=== PATIENT | female | born 1980 | race Hispanic/Latino ===

== ENCOUNTER 2018-05-25 20:01 | Observation (INO) | payer OTHER ==
[~2018-05-25] VITALS: Ht 167.6 cm; Wt 136.1 kg
[2018-05-26 00:13] LABS: BASOPHILS % 0.2 % (0.0-1.0); EOSINOPHILS # (AUTO) 0.1 (0.0-0.4); EOSINOPHILS % 1.3 % (0.0-6.0); HEMATOCRIT 38.8 % (34.2-44.1); HEMOGLOBIN 12.8 g/dL (12.0-16.0); LYMPHOCYTES # (AUTO) 1.5 (1.0-3.2); LYMPHOCYTES % 31.5 % (18.0-39.1); MEAN CORPUSCULAR HEMOGLOBIN 30.4 pg (28-32); MEAN CORPUSCULAR VOLUME 92.2 fL (81-99); MONOCYTES # (AUTO) 0.6 (0.2-0.8); MONOCYTES % 12.3 % (4.4-11.3); NEUTROPHILS # (AUTO) 2.5 (2.1-6.9); NEUTROPHILS % 54.1 % (38.7-80.0); PLATELET COUNT 216 x10e3/uL (140-360); RED BLOOD COUNT 4.21 x10e6/uL (3.6-5.1); RED CELL DISTRIBUTION WIDTH 12.8 % (11.7-14.4)
[2018-05-26 00:21] LABS: INR 0.95; PROTHROMBIN TIME 13.2 seconds (11.9-14.5)
[2018-05-26 00:22] LABS: PARTIAL THROMBOPLASTIN TIME 30.3 seconds (23.8-35.5)
[2018-05-26 00:32] LABS: ANION GAP 12.2 mmol/L (8-16); CARBON DIOXIDE 25 mmol/L (22-29); CHLORIDE 103 mmol/L (98-107); CREATININE, SERUM 0.59 mg/dL (0.57-1.11); EST GLOMERULAR FILTRATION RATE > 60 ML/MIN (60-); POTASSIUM 3.2 mmol/L (3.5-5.1); SODIUM 137 mmol/L (136-145)
--- NOTE | 2018-05-26 00:39 | Diagnostic Imaging Report ---
Examination: Single AP view of the chest. COMPARISON: None. INDICATION: chest pain DISCUSSION: Lines/tubes: None. Lungs: The lungs are well inflated and clear. No pneumonia or pulmonary edema. Pleura: No pleural effusion or pneumothorax. Heart and mediastinum: The heart and the mediastinum are unremarkable. Bones and soft tissues: No acute bony abnormalities. IMPRESSION: 1. No acute cardiopulmonary abnormalities. Signed by: Dr. Tu Veronica M.D. on 05/26/2018 12:36 AM
[2018-05-26 00:48] LABS: ALANINE AMINOTRANSFERASE 31 IU/L (0-55); ALBUMIN 3.7 g/dL (3.5-5.0); ALKALINE PHOSPHATASE 71 IU/L (40-150); BLOOD UREA NITROGEN 6 mg/dL (7-26); BUN/CREATININE RATIO 10 (6-25); CREATINE KINASE 63 IU/L (29-168); GLUCOSE 93 mg/dL (74-118)
[2018-05-26] MEDS ORDERED: ONDANSETRON HCL INJ 2MG/ML 2ML 2 MG/ML VIAL IV PRN (01:45)
[2018-05-26] MEDS ORDERED: SODIUM CHLORIDE 0.9% 1000ML 1,000 ML IV SCH (01:45)
[2018-05-26] MEDS ORDERED: SODIUM CHLORIDE FLUSH 10 ML SYR INJ PRN (01:45)
[2018-05-26] MEDS ORDERED: NITROGLYCERIN 0.4 MG SUBL SL PRN (01:45)
[2018-05-26] MEDS ORDERED: MORPHINE SULFATE INJ 4 MG/ML INJ 1ML IV PRN (01:45)
[2018-05-26 01:55] LABS: CLARITY,URINE CLOUDY (CLEAR); COLOR,URINE YELLOW (YELLOW); LEUKOCYTE ESTERASE ,URINE 1+ (NEGATIVE); NITRITE,URINE NEGATIVE (NEGATIVE); PROTEIN,URINE DIPSTICK NEGATIVE (NEGATIVE)
[2018-05-26 01:56] LABS: BILIRUBIN,URINE NEGATIVE (NEGATIVE); KETONES,URINE 1+ (NEGATIVE); URINE UROBILINOGEN 1 mg/dL (0.2 - 1)
[2018-05-26 02:15] LABS: BACTERIA,URINE MODERATE /HPF; EPITHELIAL CELLS,URINE MANY /LPF
[2018-05-26] MEDS: FAMOTIDINE 20 MG TAB PO SCH ×2 (03:34→16:47)
--- OUTSIDE RECORDS SUMMARY | 2018-05-26 03:56 | XMS REPORT ---
Author Author [facility] Address Unknown Phone Unavailable Care Team Providers Care Intermediate Project Manager Name Role Phone Lindsay CUNNINGHAM Unavailable Unavailable Problems This patient has no known problems. Allergies, Adverse Reactions, Alerts This patient has no known allergies or adverse reactions. Medications This patient has no known medications. Results Test Description Test Time Test Comments Text Results Atomic Results Result Comments CHEST SINGLE (PORTABLE) 2018-05-26 00:35:00 [place] [address] Patient Name: KAM LINK MR #: [id number] : 1980 Age/Sex: 38/F Req #: [id number] Adm Physician: Ordered by: CHASITY CUNNINGHAM MD Report #: [id number] Location: ER Room/Bed: Procedure: [id number] DX/CHEST SINGLE (PORTABLE) Exam Date: 05/26/18 Exam Time: 0020 REPORT STATUS: Signed Examination: Single AP view of the chest. COMP ARISON: None. INDICATION: chest pain DISCUSSION: Lines/tubes: None. Lungs: The lungs are well inflated and clear. No pneumonia or pulmonary edema. Pleura: No pleural effusion or pneumothorax. Heart and mediastinum: The heart and the mediastinum are unremarkable. Bones and soft tissues: No acute bony abnormalities. IMPRESSION: 1. No acute cardiopulmonary abnormalities. Signed by: Dr. Robles Galaviz M.D. on 05/26/2018 12:36 AM Dictated By: ROBLES GALAVIZ MD Transcribed By: MARGE on 05/26/1835 COPY TO: CHASITY CUNNINGHAM MD
--- NOTE | 2018-05-26 07:14 | NUR ---
WALKING ROUNDS WITH JOON SIMMONS
[2018-05-26] MEDS: NITROGLYCERIN 2% OINT 1 GM PKT TOP SCH ×2 (07:15→12:00)
--- NOTE | 2018-05-26 07:15 | NUR ---
ASSUMED CARE AT THIS TIME, NAD NOTED, RESTING IN SEMI-FOLWERS IN STRETCHER, BREATHING EVEN/UNLABORED, DENIES CP AT THIS TIME.
[2018-05-26 08:42] LABS: CREATINE KINASE MB 0.9 ng/mL (0-5.0)
[2018-05-26] MEDS ORDERED: ASPIRIN 81 MG ENTERIC COATED PO SCH (09:00)
--- NOTE | 2018-05-26 09:08 | NUR ---
ECHOVASCULAR AT BEDSIDE AT THIS TIME.
[2018-05-26] MEDS: NITROFURANTOIN MACROCRYSTALS 100 MG CAP PO SCH ×2 (09:12→16:47)
--- NOTE | 2018-05-26 12:09 | History and Physical ---
REASON FOR ADMISSION: Chest pain. HISTORY OF PRESENT ILLNESS: The patient is a 38-year-old lady with no past medical history, who presented with chest pain that was squeezing in nature, radiated to left shoulder, is no longer present. Initial enzymes are negative. Chest x-ray is negative, but she has been admitted for further evaluation and treatment. PAST MEDICAL HISTORY: Unremarkable. MEDICATIONS: None. SOCIAL HISTORY: Nonsmoker, nondrinker. FAMILY HISTORY: Hypertension. ALLERGIES: NONE. PHYSICAL EXAMINATION: VITAL SIGNS: Temperature 98.6, pulse 84, blood pressure 133/80, sats are 98% on room air. GENERAL: She is in no apparent distress, lying in bed. NECK: Supple. CARDIOVASCULAR: Regular rate and rhythm. LUNGS: Clear to auscultation bilaterally. ABDOMEN: Good bowel sounds. Soft, nontender. EXTREMITIES: No clubbing, cyanosis. NEUROLOGIC: Nonfocal. ASSESSMENT: 1. Chest pain. We will rule out myocardial infarction. Get a Cardiology evaluation. 2. Hypokalemia, was already replaced in the emergency room. 3. Urinary tract infection. We will place her on some Macrobid. We will check a urine culture. Please see hospital chart for full details. MD TERRELL Rogers/LALO /[id number]
[2018-05-26 13:24] LABS: CREATINE KINASE MB 0.8 ng/mL (0-5.0)
[2018-05-26 15:55] VITALS: BP 129/74
--- NOTE | 2018-05-26 15:55 | NUR ---
Patient received on unit at this time. Patient walked to bed, gait steady. A&Ox3. Patient denies chest pain and any other pain at this time. Lung sounds clear. Bowel sounds active. Skin intact. Slight swelling around ankles, non-pitting. R AC 20g IV asymptomatic, intact, and patent. Patient reports no symptoms at this time. Patient had a stomach virus, causing nausea and diarrhea that cleared up 05/25 in the morning. No stomach upset since then. Patient reports that she has experienced no chest pain since taking aspirin at the urgent care clinic she initially went to.
[2018-05-26 16:19] VITALS: BP 129/74
[2018-05-26] MEDS ORDERED: MACROBID 100 M100 MG PO (16:54)
--- NOTE | 2018-05-26 17:15 | NUR ---
Removed R AC 20g IV. Catheter tip intact. Pressure dressing applied. Patient discharged at this time. Prescription explained. Complete antibiotic cycle. Follow up with Dr Vieira for stress test. Patient reports she already set up an appointment with him for 06/07 which is their earliest appointment. Activity as tolerated. Patient asked about taking baby aspirin in the meantime. Explained dosage and that it could be helpful, but does increase bleeding, so if she decides to take it and bleeding occurs, hold pressure for longer than normal. Stressed importance of paying attention to chest pain and going to ER if it occurs again. Patient verbalized understanding. Provided education on angina and chest wall chest pain. Steady gait noted. Patient walked, accompanied by staff to car. Refused wheelchair.
--- NOTE | 2018-05-26 23:23 | Consultation ---
DATE OF CONSULTATION: Cardiology Consultation. REASON FOR CONSULTATION: Chest pain. HISTORY OF PRESENT ILLNESS: This is a 38-year-old woman with a history of obesity, who presented to the Emergency Department with chest pain. The patient's chest pain started at 5:00 p.m. yesterday. The patient reports that it was epigastric, substernal with radiation to the back with squeezing and tightening in character, mild to moderate intensity. No other exacerbating or relieving factors. Upon arrival here, all cardiac workup including cardiac markers, chest x-ray and 12-lead electrocardiogram within normal limits. The patient is currently asymptomatic. REVIEW OF SYSTEMS: A 12-point review of system was conducted, is negative otherwise above in the HPI. PAST MEDICAL HISTORY: Obesity. PAST FAMILY HISTORY: Father with bypass surgery in his late 60s. SOCIAL HISTORY: No illicit drug use, alcohol, or tobacco use. MEDICATIONS: See medication reconciliation form. ALLERGIES: NO KNOWN DRUG ALLERGIES. PHYSICAL EXAMINATION: VITAL SIGNS: Temperature 96.8, heart rate is 68, respirations are 20, blood pressure is 129/74, oxygen saturation 98% on room air. GENERAL: She is well-appearing woman in no apparent distress. Alert and oriented x3. HEENT: Head is a normocephalic, atraumatic. Eyes, the extraocular moves are intact. Conjunctivae are clear. NECK: No JVD. No bruits. CARDIOVASCULAR: Regular rate and rhythm. LUNGS: Clear to auscultation. ABDOMEN: Soft, nontender, nondistended. EXTREMITIES: No edema. VASCULAR: 2+ pulses. NEUROLOGIC: No focal deficits noted. Cardiac enzymes negative x3. BNP is less than 10. Chest x-ray shows no acute cardiopulmonary abnormality. A 12-lead electrocardiogram showed normal sinus rhythm. A 2D echocardiogram shows normal left ventricular systolic function with no significant valvular abnormalities. IMPRESSION: 1. Precordial pain. 2. Obesity. 3. Hypokalemia. 4. Urinary tract infection. RECOMMENDATIONS: The patient's pain is completely resolved and appears noncardiac in origin. Her 12-lead electrocardiogram, cardiac enzymes, BNP, chest x-ray and echocardiogram are all within normal limits. The patient may be discharged from a cardiovascular standpoint with outpatient stress testing. DO ADAM Browning/TAHIRAL /[id number]
--- NOTE | 2018-05-28 06:48 | Discharge Summary ---
DISCHARGE DIAGNOSIS: Chest pain, rule out myocardial infarction. HISTORY OF PRESENT ILLNESS AND HOSPITAL COURSE: See hospital chart for full details. The patient is a 38-year-old lady, who presented with chest pain, which resolved in the emergency room and did not return while she was in the hospital. She had cardiac enzymes that were negative. Echo that was within normal limits. BMP that was normal. Chest x-ray that was normal and cardiac enzymes that were normal. She was seen by Dr. Vieira of Cardiology, who felt like the patient was safe to be discharged home and will follow up as an outpatient for outpatient stress testing, which the patient was agreeable to. She did have evidence of urinary tract infection. She was discharged home on p.o. Macrobid 100 mg b.i.d. for 7 days. Encouraged to follow up with her PCP as well as Dr. Vieira in 1-2 weeks. Please see hospital chart for full details. MD TERRELL Rogers/LALO /[id number]
== END 2018-05-26 17:15 | disposition home or self-care (01) ==
LOC: ER 20:01 → ERHOLD 05-26 03:53 → IMCU 05-26 15:55
PROVIDERS: ADMIT Internal Medicine; ATTEND Internal Medicine
DX: R07.2 Precordial pain (principal); E66.01 Morbid (severe) obesity due to excess calories; Z68.42 Body mass index [BMI] 45.0-49.9, adult; E87.6 Hypokalemia; N39.0 Urinary tract infection, site not specified
CPT/HCPCS: 36415; 71045; 80053; 81001; 82550; 82553; 83880; 84484; 85025; 85610; 85730; 93005; 93306; 99285; G0378; J7030

== ENCOUNTER → 2019-06-28 | Outpatient (CLI) | payer OTHER ==
[~2019-06-28] MED LIST: MACROBID 100 M100 MG PO
--- NOTE | 2019-06-28 08:39 | Diagnostic Imaging Report ---
Exam: Right knee 3 views History: Pain and swelling Comparison: None. Findings: No acute, displaced fracture or dislocation. Joint spaces are well-maintained. No definite joint effusion. Soft tissues are unremarkable. Impression: No acute osseous abnormality. Signed by: Dr. Venancio Dumont M.D. on 06/28/2019 8:35 AM
== END ==
LOC: RAD 07:55
PROVIDERS: ATTEND Family Medicine
DX: M25.561 Pain in right knee (principal)

== ENCOUNTER 2019-11-08 18:26 | Inpatient (IN) | payer OTHER ==
[~2019-11-08] VITALS: Ht 167.6 cm; Wt 100.7 kg
[2019-11-08 19:19] LABS: BASOPHILS % 0.5 % (0.0-1.0); EOSINOPHILS # (AUTO) 0.1 (0.0-0.4); EOSINOPHILS % 1.3 % (0.0-6.0); HEMATOCRIT 38.2 % (34.2-44.1); HEMOGLOBIN 12.5 g/dL (12.0-16.0); LYMPHOCYTES # (AUTO) 2.6 (1.0-3.2); LYMPHOCYTES % 32.3 % (18.0-39.1); MEAN CORPUSCULAR HEMOGLOBIN 30.6 pg (28-32); MEAN CORPUSCULAR HGB CONC 32.7 g/dL (31-35); MEAN CORPUSCULAR VOLUME 93.4 fL (81-99); MONOCYTES # (AUTO) 0.6 (0.2-0.8); NEUTROPHILS # (AUTO) 4.6 (2.1-6.9); NEUTROPHILS % 57.6 % (38.7-80.0); PLATELET COUNT 236 x10e3/uL (140-360); RED BLOOD COUNT 4.09 x10e6/uL (3.6-5.1); RED CELL DISTRIBUTION WIDTH 12.3 % (11.7-14.4)
[2019-11-08 19:33] LABS: ALANINE AMINOTRANSFERASE 15 IU/L (0-55); ALBUMIN 4.6 g/dL (3.5-5.0); ALBUMIN/GLOBULIN RATIO 1.6 (0.8-2.0); ALKALINE PHOSPHATASE 53 IU/L (40-150); ANION GAP 16.5 mmol/L (8-16); BLOOD UREA NITROGEN 11 mg/dL (7-26); BUN/CREATININE RATIO 16 (6-25); CALCIUM 9.3 mg/dL (8.4-10.2); CARBON DIOXIDE 24 mmol/L (22-29); CHLORIDE 102 mmol/L (98-107); CREATINE KINASE 78 IU/L (29-168); CREATININE, SERUM 0.68 mg/dL (0.57-1.11); EST GLOMERULAR FILTRATION RATE > 60 ML/MIN (60-); GLUCOSE 109 mg/dL (74-118); POTASSIUM 3.5 mmol/L (3.5-5.1); SODIUM 139 mmol/L (136-145)
[2019-11-08 19:34] LABS: AMYLASE 309 U/L (25-125); LIPASE 1068 U/L (8-78)
--- NOTE | 2019-11-08 19:44 | Emergency Department Note ---
History of Present Illnes History of Present Illness Chief Complaint: Abdominal Complaints History of Present Illness This is a 39 year old female IN FROM HOME WITH COMPLAINTS OF RUQ ABDOMINAL PAIN STARTING APPROX 1530 TODAY; PATIENT DENIES NAUSEA, VOMITING, OR DIARRHEA. RATES PAIN 8/10, RESP EVEN AND NONLABORED, APPEARS IN NO DISTRESS. Historian: Patient Arrival Mode: Car Onset (how long ago): hour(s) (3) Location: RUQ Quality: PAIN Radiation: Reports back Severity: moderate Onset quality: sudden Duration (how long): hour(s) (3) Timing of current episode: unable to specify Progression: resolved (AT 1935) Context: Denies recent illness, Denies recent surgery, Denies trauma/injury Relieving factors: none Exacerbating factors: none Associated symptoms: Reports denies other symptoms Past Medical/Family History Physician Review I have reviewed the patient's past medical and family history. Any updates have been documented here. Past Medical History Recent Fever: No Clinical Suspicion of Infectio: No New/Unexplained Change in Ment: No Past Medical History: None Past Surgical History: Tubal Ligation, , Bariatric Surgery Other Surgery: removal of ovary GASTRIC SLEEVE 2018 Social History Smoking Cessation: Never Smoker Alcohol Use: None Any Illegal Drug Use: No Family History Family history of heart diseas: No Other Last Tetanus: UNKNOWN Review of Systems Review of Systems Constitutional: Reports no symptoms EENTM: Reports no symptoms Cardiovascular: Reports no symptoms Respiratory: Reports no symptoms Gastrointestinal: Reports as per HPI Genitourinary: Reports no symptoms Musculoskeletal: Reports no symptoms Integumentary: Reports no symptoms Neurological: Reports no symptoms Psychological: Reports no symptoms Endocrine: Reports no symptoms Hematological/Lymphatic: Reports no symptoms Physical Exam Related Data Allergies: Coded Allergies: No Known Allergies (Unverified , 11/08/19) Triage Vital Signs Vital Signs Date Time Temp Pulse Resp B/P (MAP) Pulse Ox O2 Delivery O2 Flow Rate FiO2 11/08/19 18:39 98.6 58 20 113/65 100 Room Air Vital signs reviewed: Yes Physical Exam CONSTITUTIONAL Constitutional: Present well-developed, Present well-nourished HENT HENT: Present normocephalic, Present atraumatic, Present oropharynx clear/moist, Present nose normal HENT L/R: Present left ext ear normal, Present right ext ear normal EYES Eyes: Reports PERRL, Reports conjunctivae normal NECK Neck: Present ROM normal PULMONARY Pulmonary: Present effort normal, Present breath sounds normal CARDIOVASCULAR Cardiovascular: Present regular rhythm, Present heart sounds normal, Present capillary refill normal, Present normal rate GASTROINTESTINAL Abdominal: Present soft, Present nontender, Present bowel sounds normal GENITOURINARY Genitourinary: Present exam deferred SKIN Skin: Present warm, Present dry MUSCULOSKELETAL Musculoskeletal: Present ROM normal NEUROLOGICAL Neurological: Present alert, Present oriented x 3, Present no gross motor or sensory deficits PSYCHOLOGICAL Psychological: Present mood/affect normal, Present judgement normal Results Laboratory Result Diagram: 11/08/195 11/08/195 Laboratory Laboratory Tests Test 11/08/19 18:45 White Blood Count 7.98 x10e3/uL (4.8-10.8) Red Blood Count 4.09 x10e6/uL (3.6-5.1) Hemoglobin 12.5 g/dL (12.0-16.0) Hematocrit 38.2 % (34.2-44.1) Mean Corpuscular Volume 93.4 fL (81-99) Mean Corpuscular Hemoglobin 30.6 pg (28-32) Mean Corpuscular Hemoglobin Concent 32.7 g/dL (31-35) Red Cell Distribution Width 12.3 % (11.7-14.4) Platelet Count 236 x10e3/uL (140-360) Neutrophils (%) (Auto) 57.6 % (38.7-80.0) Lymphocytes (%) (Auto) 32.3 % (18.0-39.1) Monocytes (%) (Auto) 8.0 % (4.4-11.3) Eosinophils (%) (Auto) 1.3 % (0.0-6.0) Basophils (%) (Auto) 0.5 % (0.0-1.0) Neutrophils # (Auto) 4.6 (2.1-6.9) Lymphocytes # (Auto) 2.6 (1.0-3.2) Monocytes # (Auto) 0.6 (0.2-0.8) Eosinophils # (Auto) 0.1 (0.0-0.4) Basophils # (Auto) 0.0 (0.0-0.1) Absolute Immature Granulocyte (auto 0.02 x10e3/uL (0-0.1) Sodium Level 139 mmol/L (136-145) Potassium Level 3.5 mmol/L (3.5-5.1) Chloride Level 102 mmol/L (98-107) Carbon Dioxide Level 24 mmol/L (22-29) Anion Gap 16.5 mmol/L (8-16) Blood Urea Nitrogen 11 mg/dL (7-26) Creatinine 0.68 mg/dL (0.57-1.11) Estimat Glomerular Filtration Rate > 60 ML/MIN (60-) BUN/Creatinine Ratio 16 (6-25) Glucose Level 109 mg/dL (74-118) Calcium Level 9.3 mg/dL (8.4-10.2) Total Bilirubin 0.5 mg/dL (0.2-1.2) Aspartate Amino Transf (AST/SGOT) 17 IU/L (5-34) Alanine Aminotransferase (ALT/SGPT) 15 IU/L (0-55) Alkaline Phosphatase 53 IU/L (40-150) Creatine Kinase 78 IU/L (29-168) Total Protein 7.4 g/dL (6.5-8.1) Albumin 4.6 g/dL (3.5-5.0) Globulin 2.8 g/dL (2.3-3.5) Albumin/Globulin Ratio 1.6 (0.8-2.0) Amylase Level 309 U/L (25-125) Lipase 1068 U/L (8-78) Human Chorionic Gonadotropin, Qual Negative (NEGATIVE) Imaging Imaging results reviewed: Yes Impressions Patient Name: KAM LINK MR #: [id number] : 1980 Age/Sex: 39/F Req #: [id number] Adm Physician: Ordered by: TIARA BARNES MD Report #: [id number] Location: ER Room/Bed: Procedure: US/US GALLBLADDER Exam Date: 11/08/19 Exam Time: 2017 REPORT STATUS: Signed EXAM: Right Upper Quadrant Ultrasound INDICATION: RUQ ABD PAIN COMPARISON: None. TECHNIQUE: Transverse and longitudinal images of the right upper abdomen were obtained. FINDINGS: Liver: Size: 14.9 cm in the right midclavicular line, normal Appearance: Normal echogenicity, smooth contour Mass: No focal masses Gallbladder: Stones/Sludge: Cholelithiasis and sludge. Wall: 0.2 cm, normal Appearance: Nondistended. No pericholecystic fluid. Sonographic Hartman's Sign: Negative Bile Ducts: Intrahepatic Ducts: No dilatation Extrahepatic Ducts: Common bile duct measures 0.2 cm, no dilatation Pancreas: Visualized portions of the pancreatic head, neck and proximal body are normal. Right Kidney: Size: 11.7 cm Echogenicity: Normal Parenchymal thickness: Normal Collecting system: No hydronephrosis Stones: None Cyst/Mass: 2.4 cm simple appearing cyst, although mildly limited evaluation. Vessels: Aorta: Visualized portions are normal Inferior Vena Cava: Visualized portions are normal Main portal vein: Normal size and flow direction. Free Fluid: No ascites or pleural effusion IMPRESSION: Cholelithiasis without evidence of acute cholecystitis. Signed by: Alison Awad MD on 11/08/2019 10:04 PM Dictated By: ALISON AWAD MD 03 Transcribed By: MARGE on 11/08/192203 COPY TO: TIARA BARNES MD~ Procedures 12 Lead ECG Interpretation ECG Interpretation : ECG: ECG 1 Exterminator Termite: Interpreted by ED physician Date: Nov 08, 2019 Time: 19:34 Rhythm: sinus rhythm Rate: normal BPM: 61 QRS axis: normal ST segments normal: Yes T waves normal: Yes Other findings: no other findings Clinical Impression: normal ECG Assessment & Plan Medical Decision Making MDM PT WITH RUQ PAIN RADIATING TO BACK CBC,CMP, AMYLASE, LIPASE, UA, GALLBLADDER US, EKG, CARDIAC ENZYMES ORDERED TO EVAL FOR MYOCARDIAL INFARCTION, UTI, ELEVATED LFT'S. PANCREATITIS, GALLSTONES I SPOKE WITH DR SYED AND DR Ellie LAI PLACE IN OBS Assessment & Plan Final Impression: (1) Gallstones (2) Pancreatitis Depart Disposition: ADMITTED Last Vital Signs Date Time Temp Pulse Resp B/P (MAP) Pulse Ox O2 Delivery O2 Flow Rate FiO2 11/08/19 18:39 98.6 58 20 113/65 100 Room Air Home Meds Reported Medications Nitrofurantoin Monohyd/M-Cryst (MACROBID 100 MG CAPSULE) 100 Mg Capsule, 100 MG PO BID 05/26/18 TIARA BARNES MD Nov 08, 2019 19:44
[2019-11-08 20:19] LABS: CLARITY,URINE SL CLOUDY (CLEAR); COLOR,URINE STRAW (YELLOW)
[2019-11-08 20:20] LABS: BILIRUBIN,URINE SMALL (NEGATIVE); KETONES,URINE 2+ (NEGATIVE); LEUKOCYTE ESTERASE ,URINE NEGATIVE (NEGATIVE); NITRITE,URINE NEGATIVE (NEGATIVE); PROTEIN,URINE DIPSTICK NEGATIVE (NEGATIVE); URINE UROBILINOGEN 0.2 mg/dL (0.2 - 1)
[2019-11-08 20:31] LABS: BACTERIA,URINE MODERATE /HPF; EPITHELIAL CELLS,URINE MANY /LPF
--- NOTE | 2019-11-08 22:08 | Diagnostic Imaging Report ---
EXAM: Right Upper Quadrant Ultrasound INDICATION: RUQ ABD PAIN COMPARISON: None. TECHNIQUE: Transverse and longitudinal images of the right upper abdomen were obtained. FINDINGS: Liver: Size: 14.9 cm in the right midclavicular line, normal Appearance: Normal echogenicity, smooth contour Mass: No focal masses Gallbladder: Stones/Sludge: Cholelithiasis and sludge. Wall: 0.2 cm, normal Appearance: Nondistended. No pericholecystic fluid. Sonographic Hartman's Sign: Negative Bile Ducts: Intrahepatic Ducts: No dilatation Extrahepatic Ducts: Common bile duct measures 0.2 cm, no dilatation Pancreas: Visualized portions of the pancreatic head, neck and proximal body are normal. Right Kidney: Size: 11.7 cm Echogenicity: Normal Parenchymal thickness: Normal Collecting system: No hydronephrosis Stones: None Cyst/Mass: 2.4 cm simple appearing cyst, although mildly limited evaluation. Vessels: Aorta: Visualized portions are normal Inferior Vena Cava: Visualized portions are normal Main portal vein: Normal size and flow direction. Free Fluid: No ascites or pleural effusion IMPRESSION: Cholelithiasis without evidence of acute cholecystitis. Signed by: Emmanuel Kelley MD on 11/08/2019 10:04 PM
[2019-11-08] MEDS ORDERED: ONDANSETRON HCL INJ 2MG/ML 2ML 2 MG/ML VIAL IV PRN (22:30)
--- NOTE | 2019-11-08 23:00 | NUR ---
RECEIVED THE PT FROM ER IN A WHEEL CHAIR WITH C/O RUQ ABD.PAIN.AAOX4.AMBULATES.NO RESP.UPON ASSESSMENT NO RESP.DISTRESS.NO PAIN VOICED NOW.ORIENTED TO THE UNIT.IV TO RAC #20G PATENT.BED LOCKED AN DIN LOWEST POSITION.CALL LIGHT WITHIN REACH.INSTRUCTED TO CALL FOR ASSISTANCE NEEDED.
[2019-11-08 23:25] VITALS: BP 119/72
[2019-11-08 23:35] VITALS: BP 119/72
[2019-11-08 23:40] VITALS: BP 119/72
[2019-11-09] VITALS (7 sets, daily range): BP systolic 111–136; BP diastolic 54–82
[2019-11-09] MEDS: SODIUM CHLORIDE 0.9% 1000ML 1,000 ML IV SCH ×4 (00:03→15:54)
[2019-11-09] MEDS ORDERED: VITAMIN B-121000 MC2 PO (02:35)
--- NOTE | 2019-11-09 02:35 | NUR ---
Pt is unable to provide home med dose .
[2019-11-09 05:17] LABS: BASOPHILS % 0.6 % (0.0-1.0); EOSINOPHILS # (AUTO) 0.1 (0.0-0.4); EOSINOPHILS % 1.6 % (0.0-6.0); HEMATOCRIT 34.1 % (34.2-44.1); HEMOGLOBIN 11.5 g/dL (12.0-16.0); LYMPHOCYTES # (AUTO) 2.2 (1.0-3.2); LYMPHOCYTES % 32.2 % (18.0-39.1); MEAN CORPUSCULAR HEMOGLOBIN 32.1 pg (28-32); MEAN CORPUSCULAR HGB CONC 33.7 g/dL (31-35); MEAN CORPUSCULAR VOLUME 95.3 fL (81-99); MONOCYTES # (AUTO) 0.5 (0.2-0.8); MONOCYTES % 7.6 % (4.4-11.3); NEUTROPHILS % 57.9 % (38.7-80.0); PLATELET COUNT 189 x10e3/uL (140-360); RED BLOOD COUNT 3.58 x10e6/uL (3.6-5.1); RED CELL DISTRIBUTION WIDTH 12.3 % (11.7-14.4)
--- NOTE | 2019-11-09 05:32 | NUR ---
Patient is on npo.no pain voiced.resting now.as per the report from er is aware of the consults.
[2019-11-09 05:50] LABS: ALANINE AMINOTRANSFERASE 13 IU/L (0-55); ALBUMIN 3.9 g/dL (3.5-5.0); ALBUMIN/GLOBULIN RATIO 1.6 (0.8-2.0); ALKALINE PHOSPHATASE 45 IU/L (40-150); AMYLASE 231 U/L (25-125); ANION GAP 10.7 mmol/L (8-16); BLOOD UREA NITROGEN 8 mg/dL (7-26); BUN/CREATININE RATIO 13 (6-25); CALCIUM 8.5 mg/dL (8.4-10.2); CARBON DIOXIDE 26 mmol/L (22-29); CHLORIDE 106 mmol/L (98-107); EST GLOMERULAR FILTRATION RATE > 60 ML/MIN (60-); GLUCOSE 90 mg/dL (74-118); LIPASE 190 U/L (8-78); POTASSIUM 3.7 mmol/L (3.5-5.1); SODIUM 139 mmol/L (136-145)
--- NOTE | 2019-11-09 06:20 | NUR ---
SPOKE TO .ERCP STAT ORDERED.
--- NOTE | 2019-11-09 06:56 | NUR ---
Bed side shift report given to oncoming rn.lyeing in the bed.no pain voiced.stable condition.
--- OUTSIDE RECORDS SUMMARY | 2019-11-09 10:32 | XMS REPORT | Continuity of Care Document ---
Author Author [facility] t Organization [facility] Address [address] [place] [id number] Phone Unavailable Care Team Providers Care Cae Engineer Name Role Phone NONSTAFF PCP Unavailable Jabier BARNES Attphys Unavailable Liset JUAN MD Attphys Unavailable Lindsay CUNNINGHAM Attphys Unavailable Payers Payer Name Policy Type Policy Number Effective Date Expiration Date Jaswant Zeng o [id number] 2011 00:00:00 [facility] Problems This patient has no known problems. Allergies, Adverse Reactions, Alerts This patient has no known allergies or adverse reactions. Medications Ordered Medication Name Filled Medication Name Start Date Stop Da te Current Medication? Ordering Clinician Indication Dosage Frequency Signature (SIG) Comments Components Source Nitrofurantoin Monohyd/M-Cryst (Macrobid 100 Mg Capsul e) 100 Mg Capsule Nitrofurantoin Monohyd/M-Cryst (Macrobid 100 Mg Capsule) 100 Mg Capsule Yes 100 Twice A Day [facility] Procedures This patient has no known procedures. Encounters Start Date/Time End Date/Time Encounter Type [facility] Encounter ID Source 2018-09-19 13:58:00 2018-09-19 13:58:00 Outpatient [facility] [id number] [facility] 2018-05-26 03:53:00 2018-05-26 17:15:00 Discharged Inpatient (obs) 1 CHASITY CUNNINGHAM [facility] [id number] [facility] Results Test Description Test Time Test Comments Results Result Comments Source US GALLBLADDER 2019-11-08 21:10:00 [facility] [address] [place], [place] [address] Patient Name: KAM LINK MR #: [id number] : 1980 Age/Sex: 39/F Req #: [id number] Adm Physician: Ordered by: TIARA BARNES MD Report #: [id number] Location: ER Room/Bed: Procedure: [id number] US/US GALLBLADDER Exam Date: 11/08/19 Exam Time: 2017 REPORT STATUS: Signed EXAM: Right Upper Quadrant Ultrasound INDICATION: RUQ ABD PAIN COMPARISON: None. TECHNIQUE: Transverse and longitudinal images of the right upper abdomen were obtained. FINDINGS: Liver: Size: 14.9 cm in the right midclavicular line, normal Appearance: Normal echogenicity, smooth contour Mass: No focal masses Gallbladder: Stones/Sludge: Cholelithiasis and sludge. Wall: 0.2 cm, normal Appearance: Nondistended. No pericholecystic fluid. Sonographic Hartman's Sign: Negative Bile Ducts: Intrahepatic Ducts: No dilatation Extrahepatic Ducts: Common bile duct measures 0.2 cm, no dilatation Pancreas: Visualized portions of the pancreatic head, neck and proximal body are normal. Right Kidney: Size: 11.7 cm Echogenicity: Normal Parenchymal thickness: Normal Collecting system: No hydronephrosis Stones: None Cyst/Mass: 2.4 cm simple appearing cyst, although mildly limited evaluation. Vessels: Aorta: Visualized portions are normal Inferior Vena Cava: Visualized portions are normal Main portal vein: Normal size and flow direction. Free Fluid: No ascites or pleural effusion IMPRESSION: Cholelithiasis without evidence of acute cholecystitis. Signed by: Alison Awad MD on 11/08/2019 10:04 PM Dictated By: ALISON AWAD MD 03 Transcribed By: MARGE on 11/08/192203 COPY TO: TIARA BARNES MD SCR MAMM BILATERAL MEAGAN CAD DIGITAL 2019-08-29 15:35:33 - SCR MAMM BILATERAL MEAGAN CAD DIGITALBILATERAL FIRST EVER DIGITAL SCREENING MAMMOGRAM 3D/2D WITH CAD: 08/29/2019CLINICAL: Asymptomatic. Digital breast tomosynthesis was performed in addition to routine CC and MLO views. Current mammographic images were evaluated by either a [employer] M-Vu or a [employer] ImageChecker CAD (computer aided detection system). No prior exams were available for comparison. There are scattered fibroglandular tissues in both breasts. No suspicious mass, architectural distortion, malignant type calcification, or lymph node abnormality detected. IMPRESSION: NEGATIVEThere is no mammographic evidence of malignancy. Resume annual screening mammography in one year. Enoch Garrido M.D. ss/penrad:08/29/2019 15:35:33 Boilermaker Mechanic: Gia GALINDO [facility]-FWletter sent: BIRADS 1-2 Normal Mammogram BI-RADS: 1 Negative KNEE RIGHT THREE VIEWS 2019-06-28 08:34:00 [place] [address] Patient Name: KAM LINK MR #: [id number] : 1980 Age/Sex: 39/F Req #: [id number] [facility] Physician: Ordered by: YESSICA GARCIA, JO ANN Hutchins MD Report #: [id number] [facility]: [facility] Room/Bed: Procedure: [id number] DX/KNEE RIGHT THREE VIEWS Exam Date: 06/28/19 Exam Time: 811 REPORT STATUS: Signed Exam: Right knee 3 views History: Pain and swelling Comparison: None. Findings: No acute, displaced fracture or dislocation. Joint spaces are well-maintained. No definite joint effusion. Soft tissues are unremarkable. Impression: No acute osseous abnormality. Signed by: Dr. Claudio Hutchison M.D. on 06/28/2019 8:35 AM Dictated By: CLAUDIO HUTCHISON MD 4 Transcribed By: MARGE on 06/28/19834 COPY TO: JO ANN JUAN Creatine Kinase MB 2018-05-26 13:25:00 Test Item Creatine Kinase MB (test code = 77323-2) 0.80 0-5.0 [facility]Troponin P8845-05-67 13:25:00* Test Item Value Reference Range Interpretation Comments Troponin I (test code = JDD7420) 0.006 0-0.300 [facility]aleCreatine Kdqgop0088-82-81 13:16:00* Test Item Value Reference Range Interpretation Comments Creatine Kinase (test code = 2157-6) 55 29-168 [facility]aleUrine ZVW0795-15-80 02:15:00* Test Item Value Reference Range Interpretation Comments Urine WBC (test code = 5821-4) 11-20 0-5 H [facility]aleUrine YWK0850-12-49 02:15:00* Test Item Value Reference Range Interpretation Comments Urine RBC (test code = 76966-6) 6-10 0-5 H [facility]aleUrine Lwseqfws4356-51-88 02:15:00* Test Item Value Reference Range Interpretation Comments Urine Bacteria (test code = 42730-3) MODERATE NONE H [facility]aleUrine Epithelial Ccwmf1113-72-50 02:15:00 * Test Item Value Reference Range Interpretation Comments Urine Epithelial Cells (test code = 72727-0) MANY NONE [facility]aleUrine Ufvhc0186-07-43 01:56:00* Test Item Value Reference Range Interpretation Comments Urine Color (test code = 5778-6) YELLOW YELLOW [facility]aleUrine Cfxnuaa4750-75-51 01:56:00* Test Item Value Reference Range Interpretation Comments Urine Clarity (test code = 23026-1) CLOUDY CLEAR H [facility]aleUrine Specific Wmvaoom1390-25-19 01:56:00 * Test Item Value Reference Range Interpretation Comments Urine Specific [place] (test code = 5811-5) 1.020 1.010-1.02 5 [facility]aleUrine kQ1909-31-50 01:56:00* Test Item Value Reference Range Interpretation Comments Urine pH (test code = 82826-5) 6 5-7 [facility]ale[facility] Leukocyte Iiylxfwz6112-37-01 01:56:00* Test Item Value Reference Range Interpretation Comments Urine Leukocyte Esterase (test code = 5799-2) 1+ NEGATIVE H [facility]aleUrine Xnwldgi5150-65-26 01:56:00* Test Item Value Reference Range Interpretation Comments Urine Nitrite (test code = 59038-3) NEGATIVE NEGATIVE [facility]aleUrine Cyewlwx8189-47-63 01:56:00* Test Item Value Reference Range Interpretation Comments Urine Protein (test code = 5804-0) NEGATIVE NEGATIVE [facility]aleUrine Glucose (UA)2018-05-26 01:56:00* Test Item Value Reference Range Interpretation Comments Urine Glucose (UA) (test code = 2349-9) NEGATIVE NEGATIVE [facility]aleUrine Okvxqga7766-57-14 01:56:00* Test Item Value Reference Range Interpretation Comments Urine Ketones (test code = 73252-1) 1+ NEGATIVE H [facility]aleUrine Xxlajjovtnnw6071-71-35 01:56:00* Test Item Value Reference Range Interpretation Comments Urine Urobilinogen (test code = 88245-1) 1 0.2-1 [facility]aleUrine Avgfflmwt3558-91-51 01:56:00* Test Item Value Reference Range Interpretation Comments Urine Bilirubin (test code = 1978-6) NEGATIVE NEGATIVE [facility]aleUrine Drltw9261-03-75 01:56:00* Test Item Value Reference Range Interpretation Comments Urine Blood (test code = 77993-7) 2+ NEGATIVE H [facility] Sunny[facility]aleBlood Urea Mwehsegw1185-49-72 00:55:00* Test Item Value Reference Range Interpretation Comments Blood Urea Nitrogen (test code = 3094-0) 6 7-26 L [facility]aleBUN/Creatinine Lhgmq3394-50-76 00:55:00* Test Item Value Reference Range Interpretation Comments BUN/Creatinine Ratio (test code = 3097-3) 10 6-25 [facility]aleGlucose Oldlb3692-60-99 00:55:00* Test Item Value Reference Range Interpretation Comments Glucose Level (test code = GWP5804) 93 74-118 [facility] SunnyvaleAlanine Aminotransferase (ALT/SGPT) 2018-05-26 00:55:00* Test Item Value Reference Range Interpretation Comments Alanine Aminotransferase (ALT/SGPT) (test code = 1742-6) 31 0-55 [facility] SunnyvaleAlbumin2019-04-05 00:55:00* Test Item Value Reference Range Interpretation Comments Albumin (test code = 1751-7) 3.7 3.5-5.0 [facility]aleGlobulin2019-04-05 00:55:00* Test Item Value Reference Range Interpretation Comments Globulin (test code = 49263-2) 3.7 2.3-3.5 H [facility] SunnyvaleAlbumin/Globulin Cargz4549-83-76 00:55:00 * Test Item Value Reference Range Interpretation Comments Albumin/Globulin Ratio (test code = 1759-0) 1.0 0.8-2.0 [facility]aleAlkaline Vvbiykmggjc2858-44-77 00:55:00* Test Item Value Reference Range Interpretation Comments Alkaline Phosphatase (test code = 6768-6) 71 40-150 [facility] SunnyvaleB-Type Natriuretic Cmpdekx2827-16-21 00:48:00* Test Item Value Reference Range Interpretation Comments B-Type Natriuretic Peptide (test code = 67751-0) < 10.0 0-100 [facility] Mifnd4117-76-12 00:36:00* Test Item Value Reference Range Interpretation Comments Sodium Level (test code = 2951-2) 137 136-145 [facility]alePotassium Ckplz4606-53-14 00:36:00* Test Item Value Reference Range Interpretation Comments Potassium Level (test code = 2823-3) 3.2 3.5-5.1 L [facility]aleChloride Hockv5164-77-85 00:36:00* Test Item Value Reference Range Interpretation Comments Chloride Level (test code = 2075-0) 103 98-107 [facility] Sunny[facility]aleCarbon Dioxide Ntyqw8875-86-51 00:36:00* Test Item Value Reference Range Interpretation Comments Carbon Dioxide Level (test code = 2028-9) 25 22-29 [facility] SunnyvaleAnion Buv0768-21-31 00:36:00* Test Item Value Reference Range Interpretation Comments Anion Gap (test code = 80206-5) 12.2 8-16 [facility]aleCreatinine2019-04-05 00:36:00* Test Item Value Reference Range Interpretation Comments Creatinine (test code = 2160-0) 0.59 0.57-1.11 [facility] SunnyvaleEstimat Glomerular Filtration Rate 2018-05-26 00:36:00* Test Item Value Reference Range Interpretation Comments Estimat Glomerular Filtration Rate (test code = 315834233) > 60 >60 Ranges were taken from the National Kidney Disease Education Program and the [facility] literature.Reference ranges:60 or greater: Ixluzk88-34 ( for 3 consecutive months): Chronic kidney disease 15 or less: Kidney failureBaylor Scott & White Medical Center – SunnyvaleCalcium Qtaqy9367-58-87 00:36:00* Test Item Value Reference Range Interpretation Comments Calcium Level (test code = 59941-2) 9.0 8.4-10.2 [facility] SunnyvaleTotal Veytbzort6416-02-40 00:36:00* Test Item Value Reference Range Interpretation Comments Total Bilirubin (test code = 1975-2) 0.4 0.2-1.2 [facility] SunnyvaleAspartate Amino Transf (AST/SGOT) 2018-05-26 00:36:00* Test Item Value Reference Range Interpretation Comments Aspartate Amino Transf (AST/SGOT) (test code = Aspartate Amino Transf (AST/SGOT)) 35 5-34 H [facility] SunnyvaleTotal Jxfxevm7854-67-43 00:36:00* Test Item Value Reference Range Interpretation Comments Total Protein (test code = 2885-2) 7.5 6.5-8.1 [facility] SunnyvaleCHEST SINGLE (PORTABLE)2018-05-26 00:35:00 [facility] [address] [place] [address] Patient Name: KAM LINK MR #: [id number] : 1980 Age/Sex: 38/F Req #: [id number] Adm Physician: Ordered by: CHASITY CUNNINGHAM MD Report #: [id number] Location: ER Room/Bed: Procedure: [id number] DX /CHEST SINGLE (PORTABLE) Exam Date: 05/26/18 Exam Ti me: 0020 REPORT STATUS: Signed E xamination: Single AP view of the chest. COMPARISON: None. INDICATION: chest pain DISCUSSION: Lines/tubes: None. Lungs: The lungs are well inflated and clear. No pneumonia or pulmonary edema. Pleura: No pleural effusion or pneumothorax. Heart and mediastinum: The heart and the mediastinum are unremarkable. Bones and soft tissues: No acute bony abno rmalities. IMPRESSION: 1. No acute cardiopulmonary abnormaliti es. Signed by: Dr. Robles Galaviz M.D. on 05/26/2018 12:36 AM Dictate d By: ROBLES GALAVIZ MD COPY TO: LI CUNNINGHAM RD, MD Prothrombin Dyod2205-54-63 00:33:00* Test Item Value Reference Range Interpretation Comments Prothrombin Time (test code = 5902-2) 13.2 11.9-14.5 [facility] SunnyvaleProthromb Time International Ratio 2018-05-26 00:33:00* Test Item Value Reference Range Interpretation Comments Prothromb Time International Ratio (test code = 6301-6) 0.95 Oral Anticoagulant Therapy INR Values:1. Low Intensity Therapy 1.5 - 2.02 . Moderate Intensity Therapy 2.0 - 3.03. High Intensity Therapy(1) 2.5 - 3. 54. High Intensity Therapy(2) 3.0 - 4.05. Panic Value INR > 5.0 [facility] SunnyvaleActivated Partial Thromboplast Time 2018-05-26 00:33:00* Test Item Value Reference Range Interpretation Comments Activated Partial Thromboplast Time (test code = 29542-9) 30.3 23.8-35.5 [facility] SunnyvaleWhite Blood Lffyb8626-15-58 00:17:00* Test Item Value Reference Range Interpretation Comments White Blood Count (test code = 6690-2) 4.63 4.8-10.8 L [facility] SunnyvaleRed Blood Mmimq4714-45-51 00:17:00* Test Item Value Reference Range Interpretation Comments Red Blood Count (test code = 789-8) 4.21 3.6-5.1 [facility] SunnyvaleHemoglobin2019-04-05 00:17:00* Test Item Value Reference Range Interpretation Comments Hemoglobin (test code = 08036-0) 12.8 12.0-16.0 [facility] SunnyvaleHematocrit2019-04-05 00:17:00* Test Item Value Reference Range Interpretation Comments Hematocrit (test code = 4544-3) 38.8 34.2-44.1 [facility] SunnyvaleMean Corpuscular Tjkbyl9619-22-35 00:17:00* Test Item Value Reference Range Interpretation Comments Mean Corpuscular Volume (test code = 787-2) 92.2 81-99 [facility] SunnyvaleMean Corpuscular Mwbjixjfsr5064-97-59 00:17:00* Test Item Value Reference Range Interpretation Comments Mean Corpuscular Hemoglobin (test code = 785-6) 30.4 28-32 [facility] Corpuscular Hemoglobin Concent 2018-05-26 00:17:00* Test Item Value Reference Range Interpretation Comments Mean Corpuscular Hemoglobin Concent (test code = 786-4) 33.0 31-35 [facility] SunnyvaleRed Cell Distribution Xyhor5783-32-48 00:17:00* Test Item Value Reference Range Interpretation Comments Red Cell Distribution Width (test code = 81016-7) 12.8 11.7 -14.4 [facility] SunnyvalePlatelet Yqfxw3435-94-90 00:17:00* Test Item Value Reference Range Interpretation Comments Platelet Count (test code = 777-3) 216 140-360 [facility] SunnyvaleNeutrophils (%) (Auto)2018-05-26 00:17:00 * Test Item Value Reference Range Interpretation Comments Neutrophils (%) (Auto) (test code = 93665-6) 54.1 38.7-80.0 [facility] SunnyvaleLymphocytes (%) (Auto)2018-05-26 00:17:00 * Test Item Value Reference Range Interpretation Comments Lymphocytes (%) (Auto) (test code = 736-9) 31.5 18.0-39.1 [facility] SunnyvaleMonocytes (%) (Auto)2018-05-26 00:17:00* Test Item Value Reference Range Interpretation Comments Monocytes (%) (Auto) (test code = 5905-5) 12.3 4.4-11.3 H [facility] SunnyvaleEosinophils (%) (Auto)2018-05-26 00:17:00 * Test Item Value Reference Range Interpretation Comments Eosinophils (%) (Auto) (test code = 713-8) 1.3 0.0-6.0 [facility] SunnyvaleBasophils (%) (Auto)2018-05-26 00:17:00* Test Item Value Reference Range Interpretation Comments Basophils (%) (Auto) (test code = 706-2) 0.2 0.0-1.0 [facility] SunnyvaleIM GRANULOCYTES %2018-05-26 00:17:00* Test Item Value Reference Range Interpretation Comments IM GRANULOCYTES % (test code = IM GRANULOCYTES %) 0.6 0.0- 1.0 [facility] SunnyvaleNeutrophils # (Auto)2018-05-26 00:17:00* Test Item Value Reference Range Interpretation Comments Neutrophils # (Auto) (test code = 751-8) 2.5 2.1-6.9 [facility] SunnyvaleLymphocytes # (Auto)2018-05-26 00:17:00* Test Item Value Reference Range Interpretation Comments Lymphocytes # (Auto) (test code = 73840-4) 1.5 1.0-3.2 [facility] SunnyvaleMonocytes # (Auto)2018-05-26 00:17:00* Test Item Value Reference Range Interpretation Comments Monocytes # (Auto) (test code = 742-7) 0.6 0.2-0.8 [facility]aleEosinophils # (Auto)2018-05-26 00:17:00* Test Item Value Reference Range Interpretation Comments Eosinophils # (Auto) (test code = 711-2) 0.1 0.0-0.4 [facility]valeBasophils # (Auto)2018-05-26 00:17:00* Test Item Value Reference Range Interpretation Comments Basophils # (Auto) (test code = 704-7) 0.0 0.0-0.1 [facility] SunnyvaleAbsolute Immature Granulocyte (auto 2018-05-26 00:17:00* Test Item Value Reference Range Interpretation Comments Absolute Immature Granulocyte (auto (ramez t code = Absolute Immature Granulocyte (auto) 0.03 0-0.1 [facility]
[2019-11-09] MEDS ORDERED: IOPAMIDOL 300MG/ML 50ML INFUS..BTL IV ONE (10:37)
[2019-11-09] MEDS ORDERED: BUPIVACAINE HCL 0.5% INJ 30 ML VIAL INJ ONE (10:38)
--- OUTSIDE RECORDS SUMMARY | 2019-11-09 10:40 | XMS REPORT | Continuity of Care Document ---
Author Author [facility] t Organization [facility] Address [address] [place] [id number] Phone Unavailable Care Team Providers Care Filter Tip Inspector Name Role Phone NONSTAFF PCP Unavailable Jabier BARNES Attphys Unavailable Liset JUAN MD Attphys Unavailable Lindsay CUNNINGHAM Attphys Unavailable Payers Payer Name Policy Type Policy Number Effective Date Expiration Date Jaswant Zeng o [id number] 2011 00:00:00 [facility] Problems This patient has no [...] Mg Capsule Yes [address] [facility] Procedures This patient has no known procedures. Encounters Start Date/Time End Date/Time Encounter Type Ad[facility] Encounter ID Source 2018-09-19 13:58:00 2018-09-19 13:58:00 Outpatient [facility] [id number] [facility] 2018-05-26 03:53:00 2018-05-26 17:15:00 Discharged Inpatient (obs) 1 CHASITY CUNNINGHAM [facility] [id number] [facility] Results Test Description Test Time Test Comments Results Result Comments Source US GALLBLADDER 2019-11-08 21:10:00 [facility] [address] [place], [place] [address] Patient Name: KAM LINK MR #: [id number] : 1980 Age/Sex: 39/F Req #: [id number] Adm Physician: Ordered by: TIARA BARNES MD Report #: [id number] Location: ER Room/Bed: Procedure: [id number] US/US GALLBLADDER Exam Date: 11/08/19 Exam Time: [...] mammographic images were evaluated by either a [employer] M-Vu or a [employer] ImageChecker CAD (computer aided detection system). No prior exams were available for comparison. There are scattered fibroglandular tissues in both breasts. No suspicious mass, architectural distortion, malignant type calcification, or lymph node abnormality detected. IMPRESSION: NEGATIVEThere is no mammographic evidence of malignancy. Resume annual screening mammography in one year. Enoch Garrido M.D. ss/penrad:08/29/2019 15:35:33 Tobacco Prevention Health Educator: Gia GALINDO [facility]-FWletter sent: BIRADS 1-2 Normal Mammogram BI-RADS: 1 Negative KNEE RIGHT THREE VIEWS 2019-06-28 08:34:00 [place] [address] Patient Name: KAM LNIK MR #: [id number] : 1980 Age/Sex: 39/F Req #: [id number] [facility] Physician: Ordered by: YESSICA GARCIA, JO ANN Hutchins MD Report #: [id number] Location: [facility] Room/Bed: Procedure: [id number] DX/KNEE RIGHT THREE VIEWS Exam Date: 06/28/19 [...] Item Creatine Kinase MB (test code = 95895-7) 0.80 0-5.0 [facility]Troponin [id number] 13:25:00* Test Item Value Reference Range Interpretation Comments Troponin I (test code = DJJ1217) 0.006 0-0.300 [facility] HospitalCreatine Cjhwre6752-22-94 13:16:00* Test Item Value Reference Range Interpretation Comments Creatine Kinase (test code = 2157-6) 55 29-168 [facility] YZX6761-12-83 02:15:00* Test Item Value Reference Range Interpretation Comments Urine WBC (test code = 5821-4) 11-20 0-[address] [facility] [id number] 02:15:00* Test Item Value Reference Range Interpretation Comments Urine RBC (test code = 35621-7) 6-10 0-[address] [facility] Bwqfcbez0877-75-06 02:15:00* Test Item Value Reference Range Interpretation Comments Urine Bacteria (test code = 51678-2) MODERATE NONE H [facility] Epithelial Qexxe3571-77-80 02:15:00 * Test Item Value Reference Range Interpretation Comments Urine Epithelial Cells (test code = 95999-1) MANY NONE [facility] Ncbwq9798-27-87 01:56:00* Test Item Value Reference Range Interpretation Comments Urine Color (test code = 5778-6) YELLOW YELLOW [facility] Tvdzeom4701-74-56 01:56:00* Test Item Value Reference Range Interpretation Comments Urine Clarity (test code = 98600-0) CLOUDY CLEAR H [facility] HospitalUrine Specific Vtmqyhj6157-20-15 01:56:00 * Test Item Value Reference Range Interpretation Comments Urine Specific Red [place] (test code = 5811-5) 1.020 1.010-1.[address] [facility] zI6206-01-40 01:56:00* Test Item Value Reference Range Interpretation Comments Urine pH (test code = 42438-2) 6 5-7 [facility] Leukocyte Jyytowdl2182-77-34 01:56:00* Test Item Value Reference Range Interpretation Comments Urine Leukocyte Esterase (test code = 5799-2) 1+ NEGATIVE H [facility] Fjjdgui4407-42-49 01:56:00* Test Item Value Reference Range Interpretation Comments Urine Nitrite (test code = 70376-9) NEGATIVE NEGATIVE [facility] Yvjzfbv1103-69-06 01:56:00* Test Item Value Reference Range Interpretation Comments Urine Protein (test code = 5804-0) NEGATIVE NEGATIVE [facility] Glucose (UA)2018-05-26 01:56:00* Test Item Value Reference Range Interpretation Comments Urine Glucose (UA) (test code = 2349-9) NEGATIVE NEGATIVE [facility] Rdewejl2733-39-36 01:56:00* Test Item Value Reference Range Interpretation Comments Urine Ketones (test code = 79934-9) 1+ NEGATIVE H [facility] HospitalU[facility] Jsiguzevdcds7621-32-59 01:56:00* Test Item Value Reference Range Interpretation Comments Urine Urobilinogen (test code = 85289-7) 1 0.2-1 [facility] Aqhcicbff7879-34-88 01:56:00* Test Item Value Reference Range Interpretation Comments Urine Bilirubin (test code = 1978-6) NEGATIVE NEGATIVE [facility] HospitalU[facility] Gmoya4638-53-84 01:56:00* Test Item Value Reference Range Interpretation Comments Urine Blood (test code = 83752-1) 2+ NEGATIVE H [facility] HospitalBlood Urea Vsjathma7539-46-55 00:55:00* Test Item Value Reference Range Interpretation Comments Blood Urea Nitrogen (test code = 3094-0) 6 7-[address] [facility] HospitalBUN/Creatinine Gfzbz5001-47-95 00:55:00* Test Item Value Reference Range Interpretation Comments BUN/Creatinine Ratio (test code = 3097-3) 10 6-25 [facility] HospitalGlucose Ynulh0928-99-12 00:55:00* Test Item Value Reference Range Interpretation Comments Glucose Level (test code = IEX8045) 93 74-118 [facility] HospitalAlanine Aminotransferase (ALT/SGPT) 2018-05-26 00:55:00* Test Item Value Reference Range Interpretation Comments Alanine Aminotransferase (ALT/SGPT) (test code = 1742-6) 31 0-55 [facility] HospitalAlbumin2019-04-05 00:55:00* Test Item Value Reference Range Interpretation Comments Albumin (test code = 1751-7) 3.7 3.5-5.0 [facility] HospitalGlobulin2019-04-05 00:55:00* Test Item Value Reference Range Interpretation Comments Globulin (test code = 70613-3) 3.7 2.3-3.[address] [facility] HospitalAlbumin/Globulin Imkto3584-29-04 00:55:00 * Test Item Value Reference Range Interpretation Comments Albumin/Globulin Ratio (test code = 1759-0) 1.0 0.8-2.0 [facility] HospitalAlkaline Twaydqxqeuu8461-56-20 00:55:00* Test Item Value Reference Range Interpretation Comments Alkaline Phosphatase (test code = 6768-6) 71 40-150 [facility] HospitalB-Type Natriuretic Kaynyjb9291-25-88 00:48:00* Test Item Value Reference Range Interpretation Comments B-Type Natriuretic Peptide (test code = 65763-1) < 10.0 0-100 [facility] Mojnv5491-94-82 00:36:00* Test Item Value Reference Range Interpretation Comments Sodium Level (test code = 2951-2) 137 136-145 [facility] HospitalPotassium Uhxbb4706-45-37 00:36:00* Test Item Value Reference Range Interpretation Comments Potassium Level (test code = 2823-3) 3.2 3.5-5.[address] [facility] HospitalChloride Nusbj2636-79-95 00:36:00* Test Item Value Reference Range Interpretation Comments Chloride Level (test code = 2075-0) 103 98-107 [facility] HospitalCarbon Dioxide Agjel2918-96-24 00:36:00* Test Item Value Reference Range Interpretation Comments Carbon Dioxide Level (test code = 2028-9) 25 22-29 [facility] HospitalAnion Yql7083-40-57 00:36:00* Test Item Value Reference Range Interpretation Comments Anion Gap (test code = 88472-3) 12.2 8-16 [facility] HospitalCreatinine2019-04-05 00:36:00* Test Item Value Reference Range Interpretation Comments Creatinine (test code = 2160-0) 0.59 0.57-1.11 [facility] HospitalEstimat Glomerular Filtration Rate 2018-05-26 00:36:00* Test Item Value Reference Range Interpretation Comments Estimat Glomerular Filtration Rate (test code = 878162326) > 60 >60 Ranges were taken from the National Kidney Disease Education Program and the [facility] literature.Reference ranges:60 or greater: Ouxvag32-59 ( for 3 consecutive months): Chronic kidney disease 15 or less: Kidney failureSt. Luke's Health – The Woodlands HospitalCalcium Sksab9600-36-16 00:36:00* Test Item Value Reference Range Interpretation Comments Calcium Level (test code = 03829-1) 9.0 8.4-10.2 [facility] HospitalTotal Gqfbotkpr7059-26-38 00:36:00* Test Item Value Reference Range Interpretation Comments Total Bilirubin (test code = 1975-2) 0.4 0.2-1.2 [facility] HospitalAspartate Amino Transf (AST/SGOT) 2018-05-26 00:36:00* Test Item Value Reference Range Interpretation Comments Aspartate Amino Transf (AST/SGOT) (test code = Aspartate Amino Transf (AST/SGOT)) 35 5-[address] [facility] HospitalTotal Ocryzws0120-12-75 00:36:00* Test Item Value Reference Range Interpretation Comments Total Protein (test code = 2885-2) 7.5 6.5-8.1 [facility] HospitalCHEST SINGLE (PORTABLE)2018-05-26 00:35:00 [facility] [address] [place] [address] Patient Name: KAM LINK MR #: [id number] : 1980 Age/Sex: 38/F Req #: [id number] Adm Physician: Ordered by: CHASITY CUNNINGHAM MD Report #: [id number] Location: ER Room/Bed: Procedure: [id number] DX /CHEST SINGLE (PORTABLE) Exam Date: 05/26/18 [...] COPY TO: LI CUNNINGHAM RD, MD Prothrombin Ruot3892-07-77 00:33:00* Test Item Value Reference Range Interpretation Comments Prothrombin Time (test code = 5902-2) 13.2 11.9-14.5 [facility] HospitalProthromb Time International Ratio 2018-05-26 00:33:00* Test Item Value Reference Range Interpretation Comments Prothromb Time International Ratio (test code = 6301-6) 0.95 Oral Anticoagulant Therapy INR Values:1. Low Intensity Therapy 1.5 - 2.02 . Moderate Intensity Therapy 2.0 - 3.03. High Intensity Therapy(1) 2.5 - 3. 54. High Intensity Therapy(2) 3.0 - 4.05. Panic Value INR > 5.0 [facility] HospitalActivated Partial Thromboplast Time 2018-05-26 00:33:00* Test Item Value Reference Range Interpretation Comments Activated Partial Thromboplast Time (test code = 20867-2) 30.3 23.8-35.5 [facility] HospitalWhite Blood Zqoie1805-08-61 00:17:00* Test Item Value Reference Range Interpretation Comments White Blood Count (test code = 6690-2) 4.63 4.8-10.[address] [facility] HospitalRed Blood Vlueh3603-93-73 00:17:00* Test Item Value Reference Range Interpretation Comments Red Blood Count (test code = 789-8) 4.21 3.6-5.1 [facility] HospitalHemoglobin2019-04-05 00:17:00* Test Item Value Reference Range Interpretation Comments Hemoglobin (test code = 84827-6) 12.8 12.0-16.0 [facility] HospitalHematocrit2019-04-05 00:17:00* Test Item Value Reference Range Interpretation Comments Hematocrit (test code = 4544-3) 38.8 34.2-44.1 [facility] HospitalMean Corpuscular Xttops4669-79-12 00:17:00* Test Item Value Reference Range Interpretation Comments Mean Corpuscular Volume (test code = 787-2) 92.2 81-99 [facility] HospitalMean Corpuscular Cxxelxxqjk1174-71-26 00:17:00* Test Item Value Reference Range Interpretation Comments Mean Corpuscular Hemoglobin (test code = 785-6) 30.4 28-32 [facility] Hem[facility] Concent 2018-05-26 00:17:00* Test Item Value Reference Range Interpretation Comments Mean Corpuscular Hemoglobin Concent (test code = 786-4) 33.0 31-35 [facility] HospitalRed Cell Distribution Uexgn3600-48-89 00:17:00* Test Item Value Reference Range Interpretation Comments Red Cell Distribution Width (test code = 66698-3) 12.8 11.7 -14.4 [facility] HospitalPlatelet Ibcnj8930-30-47 00:17:00* Test Item Value Reference Range Interpretation Comments Platelet Count (test code = 777-3) 216 140-360 [facility] HospitalNeutrophils (%) (Auto)2018-05-26 00:17:00 * Test Item Value Reference Range Interpretation Comments Neutrophils (%) (Auto) (test code = 92063-7) 54.1 38.7-80.0 [facility] HospitalLymphocytes (%) (Auto)2018-05-26 00:17:00 * Test Item Value Reference Range Interpretation Comments Lymphocytes (%) (Auto) (test code = 736-9) 31.5 18.0-39.1 [facility] HospitalMonocytes (%) (Auto)2018-05-26 00:17:00* Test Item Value Reference Range Interpretation Comments Monocytes (%) (Auto) (test code = 5905-5) 12.3 4.4-11.[address] [facility] HospitalEosinophils (%) (Auto)2018-05-26 00:17:00 * Test Item Value Reference Range Interpretation Comments Eosinophils (%) (Auto) (test code = 713-8) 1.3 0.0-6.0 [facility] HospitalBasophils (%) (Auto)2018-05-26 00:17:00* Test Item Value Reference Range Interpretation Comments Basophils (%) (Auto) (test code = 706-2) 0.2 0.0-1.0 [facility] HospitalIM GRANULOCYTES %2018-05-26 00:17:00* Test Item Value Reference Range Interpretation Comments IM GRANULOCYTES % (test code = IM GRANULOCYTES %) 0.6 0.0- 1.0 [facility] HospitalNeutrophils # (Auto)2018-05-26 00:17:00* Test Item Value Reference Range Interpretation Comments Neutrophils # (Auto) (test code = 751-8) 2.5 2.1-6.9 [facility] HospitalLymphocytes # (Auto)2018-05-26 00:17:00* Test Item Value Reference Range Interpretation Comments Lymphocytes # (Auto) (test code = 00010-6) 1.5 1.0-3.2 [facility] HospitalMonocytes # (Auto)2018-05-26 00:17:00* Test Item Value Reference Range Interpretation Comments Monocytes # (Auto) (test code = 742-7) 0.6 0.2-0.8 [facility] HospitalEosinophils # (Auto)2018-05-26 00:17:00* Test Item Value Reference Range Interpretation Comments Eosinophils # (Auto) (test code = 711-2) 0.1 0.0-0.4 [facility] HospitalBasophils # (Auto)2018-05-26 00:17:00* Test Item Value Reference Range Interpretation Comments Basophils # (Auto) (test code = 704-7) 0.0 0.0-0.1 [facility] HospitalAbsolute Immature Granulocyte (auto 2018-05-26 00:17:00* Test Item Value Reference Range Interpretation Comments Absolute Immature Granulocyte (auto (ramez t code = Absolute Immature Granulocyte (auto) 0.03 0-0.1 [facility]
--- NOTE | 2019-11-09 11:40 | NUR ---
patient leaving unit to OR. at bedside.
[2019-11-09] MEDS ORDERED: NEOSTIGMINE 1 MG/ML 10ML VIAL ONE (13:43)
[2019-11-09] MEDS ORDERED: LIDOCAINE HCL 2% LOCAL INJ 5 ML SDV VIAL INJ ONE (13:43)
[2019-11-09] MEDS ORDERED: GLYCOPYRROLATE INJ 0.2 MG/ML VIAL ONE (13:43)
[2019-11-09] MEDS ORDERED: ROCURONIUM BROMIDE 10 MG/ML 5ML VIAL IV ONE (13:43)
[2019-11-09] MEDS ORDERED: DEXAMETHASONE SOD PHOS INJ 4 MG/ML VIAL ONE (13:43)
[2019-11-09] MEDS ORDERED: KETOROLAC TROMETHAMINE 30 MG/ML VIAL ONE (13:43)
[2019-11-09] MEDS ORDERED: PROPOFOL IV EMULSION 10 MG/ML 20 ML VIAL ONE (13:43)
[2019-11-09] MEDS ORDERED: ONDANSETRON HCL INJ 2MG/ML 2ML 2 MG/ML VIAL ONE (13:43)
[2019-11-09] MEDS ORDERED: CEFAZOLIN SOD 1 GM VIAL ONE (13:43)
[2019-11-09] MEDS ORDERED: SEVOFLURANE INHAL SOLN 250 ML PEN BTL ONE (13:43)
[2019-11-09] MEDS ORDERED: HYDROCODONE/APAP 7.5MG-325MG 1 EA TAB PO PRN (14:15)
[2019-11-09] MEDS ORDERED: HYDROMORPHONE 1MG/1ML INJ ONE (14:21)
[2019-11-09] MEDS ORDERED: PANTOPRAZOLE 40 MG 10ML VIAL IV SCH (14:30)
--- NOTE | 2019-11-09 15:26 | Operative Report ---
DATE OF PROCEDURE: 11/09/2019 SURGEON: Gabriel Mabry MD PREOPERATIVE DIAGNOSIS: Cholelithiasis and biliary colic, status post gastric sleeve, obesity. POSTOPERATIVE DIAGNOSIS: Cholelithiasis and biliary colic, status post gastric sleeve, obesity. PROCEDURE PERFORMED: Laparoscopic cholecystectomy with intraoperative cholangiogram. BLOCK OUT MACHINE OPERATOR: SARA Murry. ESTIMATED BLOOD LOSS: Minimal. DRAINS: None. COMPLICATIONS: None. INDICATION AND FINDINGS: This patient is a 39-year-old obese female status post gastric sleeve, presents to the emergency room complaining of right upper quadrant pain, nausea, and vomiting. Ultrasound revealed gallstones, no ductal dilatation. The common bile duct was 2 mm. Liver chemistries were normal. The amylase was in the 200s and the lipase which was initially in the 1000 level returned quickly to 200. Intraoperative findings were cholelithiasis, chronic cholecystitis. There was no ductal dilatation. DESCRIPTION OF PROCEDURE: With the patient lying on the operative table in the supine position after administration of general anesthesia, she was prepped and draped for laparoscopic cholecystectomy. The procedure was begun by establishing the pneumoperitoneum in the umbilical site. A stab wound was made in that location. We placed a 10/11 trocar and then a 10/11 subxiphoid port was placed and two lateral working ports in the right upper quadrant, right midclavicular and right anterior axillary line. The gallbladder was then identified. There were adhesions of the gallbladder to the omentum, those were lysed. The gallbladder was then retracted cephalad using grasping forceps through two 5 mm trocars and then we began the dissection high in the neck of the gallbladder until we identified the cystic duct as well as the junction with the common bile duct, which was seen 360 degrees circumferentially. We also identified the cystic artery and then after that point transected both structures between titanium clips. We continued dissecting cephalad and there was posterior branch, which was clipped and transected with the titanium clips also. After we did that, we then took the gallbladder down from the liver bed using electrocautery dissection. We then detached the gallbladder and placed in an endobag and removed it through the subxiphoid port. After we did that, we inspected the right upper quadrant, irrigated all the fluid out. We placed two Surgicel packs in the in the gallbladder bed fossa because there was some minor oozing to achieve hemostasis and then we irrigated again the abdomen until the effluence was clear. There was no active bleeding. No bile staining. No evidence of bowel injury. We then closed the wounds using 0-Vicryl for the umbilical fascia and 2-0 Vicryl in the location as well as the subxiphoid port and the skin of all the port was closed using rosi. 0.25% Marcaine with epinephrine was given as local block at the end of the case. The patient tolerated the procedure well and was taken to recovery room in stable condition. MD ABRAM Wray/LALO /[id number]
[2019-11-09] MEDS: MORPHINE SULFATE INJ 4 MG/ML INJ 1ML IV PRN ×2 (15:54→20:19)
--- NOTE | 2019-11-09 19:00 | NUR ---
Resumed care of patient. Patient awake and resting in bed, no s/s of distress at this time. Bed locked and in lowest position, side rails upx2, belongings and call light placed within reach. Patient instructed to call for assistance if needed, verbalized understanding. All safety measures in place.
--- NOTE | 2019-11-09 20:19 | NUR ---
Encouraged use of incentive spirometer. Patient verbalizes understanding and able to show return demonstration.
[2019-11-10] VITALS: BP 128/66
[2019-11-10] MEDS: SODIUM CHLORIDE 0.9% 1000ML 1,000 ML IV SCH ×3 (00:18→09:26)
[2019-11-10 04:00] VITALS: BP 112/57
[2019-11-10 05:26] LABS: BASOPHILS % 0.3 % (0.0-1.0); EOSINOPHILS % 0.1 % (0.0-6.0); HEMATOCRIT 31.1 % (34.2-44.1); HEMOGLOBIN 10.4 g/dL (12.0-16.0); LYMPHOCYTES # (AUTO) 1.5 (1.0-3.2); LYMPHOCYTES % 15.9 % (18.0-39.1); MEAN CORPUSCULAR HEMOGLOBIN 32.1 pg (28-32); MEAN CORPUSCULAR HGB CONC 33.4 g/dL (31-35); MONOCYTES % 10.2 % (4.4-11.3); NEUTROPHILS # (AUTO) 6.8 (2.1-6.9); NEUTROPHILS % 73.1 % (38.7-80.0); PLATELET COUNT 185 x10e3/uL (140-360); RED BLOOD COUNT 3.24 x10e6/uL (3.6-5.1); RED CELL DISTRIBUTION WIDTH 12.4 % (11.7-14.4)
[2019-11-10 05:44] LABS: ALANINE AMINOTRANSFERASE 54 IU/L (0-55); ALBUMIN 3.8 g/dL (3.5-5.0); ALBUMIN/GLOBULIN RATIO 1.7 (0.8-2.0); ANION GAP 12.1 mmol/L (8-16); BLOOD UREA NITROGEN 5 mg/dL (7-26); BUN/CREATININE RATIO 8 (6-25); CALCIUM 8.3 mg/dL (8.4-10.2); CARBON DIOXIDE 23 mmol/L (22-29); CHLORIDE 107 mmol/L (98-107); CREATININE, SERUM 0.59 mg/dL (0.57-1.11); EST GLOMERULAR FILTRATION RATE > 60 ML/MIN (60-); GLUCOSE 107 mg/dL (74-118); POTASSIUM 4.1 mmol/L (3.5-5.1); SODIUM 138 mmol/L (136-145)
[2019-11-10 05:45] LABS: ALKALINE PHOSPHATASE 43 IU/L (40-150); AMYLASE 42 U/L (25-125)
--- NOTE | 2019-11-10 06:58 | NUR ---
Handoff report given to oncoming nurse. Patient resting quietly in bed, no s/s of distress at this time. All safety measures in place.
[2019-11-10 08:01] VITALS: BP 115/60
[2019-11-10 08:07] VITALS: BP 115/60
[2019-11-10] MEDS ORDERED: CEFTRIAXONE SOD 1 GM/NS 50 ML 50 ML IV ONE (11:30)
[2019-11-10 11:35] VITALS: BP 117/60
--- NOTE | 2019-11-10 14:35 | Discharge Summary ---
CONSULTING PHYSICIAN: Dr. Gabriel Mabry. CHIEF COMPLAINT: Cholelithiasis and pancreatitis. HOSPITAL COURSE: This is a 39-year-old female who got admitted with complaints of epigastric pain. She denied having nausea or vomiting. Upon gallbladder ultrasound, she was found to have cholelithiasis without evidence of acute cholecystitis and the patient had lap ortega done on 11/09/2019. Currently, the patient is tolerating liquid diet. She has been cleared by the surgeon for discharge home today. No fever or chills reported. Her vital signs include temperature is 98.5, heart rate is 65, blood pressure is 117/60, respiratory rate is 18, and oxygen saturation 100% on room air. PAST MEDICAL HISTORY: Denies any previous past medical history. DISCHARGE DIAGNOSIS: Status post laparoscopic cholecystectomy on 11/09/2019. Follow up with surgeon in one week. Dictated by Azra Guerrero NP MD TRISTEN Thurston/LALO /[id number]
--- NOTE | 2019-11-10 14:52 | NUR ---
Discharge education provided emphasizing the need for follow-up appointment with Dr. Carlos Mabry and PCP. Verbalized understanding. Discharge packet given with Home prescription. PIV to right AC removed, catheter tip intact, no bleeding noted. Transported via wheelchair to private vehicle with all personal belongings taken by the patient.
== END 2019-11-10 14:52 | disposition home or self-care (01) | DRG 417 ==
LOC: ER 19:43 → ERHOLD 22:27 → MED/SURG 23:19
PROVIDERS: ADMIT Internal Medicine; ATTEND Internal Medicine
PROC: 0FT44ZZ Resection of Gallbladder, Percutaneous Endoscopic Approach (ICD-10-PCS; principal; 2019-11-08)
PROC: BF131ZZ Fluoroscopy of Gallbladder and Bile Ducts using Low Osmolar Contrast (ICD-10-PCS; 2019-11-08)
DX: K80.10 Calculus of gallbladder with chronic cholecystitis without obstruction (principal); K85.90 Acute pancreatitis without necrosis or infection, unspecified; K82.8 Other specified diseases of gallbladder; Z98.84 Bariatric surgery status; Z11.59 Encounter for screening for other viral diseases
CPT/HCPCS: 36415; 76705; 80053; 81001; 82150; 82550; 82553; 83690; 84484; 84702; 85025; 88304; 93005; 99284; C1766; J0690; J0696; J1100; J1170; J1885; J2001; J2270; J2405; J2710; J7030; U0002